=== PATIENT | female | born 1995 ===

== ENCOUNTER 2017-07-24 12:35 | Observation (INO) | payer MEDICAID, OTHER ==
[2017-07-24 13:11] VITALS: BMI 29.7
[2017-07-24] MEDS ORDERED: Lactated Ringer's 1,000 ML IV SCH ×2 (13:15→14:30)
[2017-07-24 13:38] LABS: BASO % 0.2 % (0.0-2.0); EOS # 0.1 K/uL (0.0-0.7); EOS % 1.1 % (0.0-4.0); HEMOGLOBIN 10.8 g/dL (12.0-16.0); LYMPH # 1.4 K/uL (1.0-4.3); LYMPH % 10.5 % (20.0-40.0); MEAN CELL VOLUME 76.1 fl (81.0-99.0); MEAN CORPUSCULAR HEMOGLOBIN 24.7 pg (27.0-31.0); MEAN CORPUSCULAR HGB CONC 32.4 g/dL (33.0-37.0); MEAN PLATELET VOLUME 9.1 fl (7.2-11.7); MONO # 0.7 K/uL (0.0-0.8); MONO % 4.8 % (0.0-10.0); NEUT # 11.3 K/uL (1.8-7.0); NEUT % 83.4 % (50.0-75.0); RBC 4.39 Mil/uL (3.80-5.20); RED CELL DISTRIBUTION WIDTH 16.4 % (11.5-14.5); WHITE BLOOD COUNT 13.5 K/uL (4.8-10.8)
[2017-07-24 14:02] LABS: AMYLASE 110 U/L (30-110); CALCIUM 9.4 mg/dL (8.4-10.2); GFR AFRICAN-AMERICAN > 60; GFR NON-AFRICAN AMERICAN > 60; LIPASE 95 U/L (23-300)
[2017-07-24 14:05] LABS: ALB/GLOB RATIO 0.9 (1.0-2.1); ALT/SGPT 9 U/L (9-52); AST/SGOT 40 U/L (14-36); BLOOD UREA NITROGEN 8 mg/dl (7-17)
[2017-07-24 14:16] LABS: SQUAMOUS EPITHIAL 6 /hpf (0-5); URINE BACTERIA OCC (<OCC); URINE BILIRUBIN NEGATIVE (NEGATIVE); URINE BLOOD SMALL (NEGATIVE); URINE CLARITY CLOUDY (Clear); URINE COLOR YELLOW (YELLOW); URINE GLUCOSE (UA) NEG (Normal); URINE LEUKOCYTE ESTERASE NEG Leu/uL (Negative); URINE PROTEIN 30 mg/dL (NEGATIVE); URINE UROBILINOGEN 0.2-1.0 mg/dL (0.2-1.0)
--- NOTE | 2017-07-24 15:58 | US ---
HISTORY: diffuse abdominal pain and left flank pain COMPARISON: None. TECHNIQUE: Sonographic evaluation of the abdomen. FINDINGS: LIVER: Measures 13.0 cm. Normal echogenicity of the liver parenchyma. No mass. No intrahepatic bile duct dilatation. GALLBLADDER: Unremarkable. No gallstones. COMMON BILE DUCT: Measures 3 mm. No stones. No dilatation. PANCREAS: Suboptimally visualized RIGHT KIDNEY: Measures 12.1cm. Normal echogenicity. No calculus, mass, or hydronephrosis. LEFT KIDNEY: Measures 12.6cm. Normal echogenicity. No calculus, mass, or hydronephrosis. SPLEEN: Normal in size and contour. No mass. AORTA: No aneurysmal dilatation. IVC: Unremarkable. OTHER FINDINGS: None. IMPRESSION: Unremarkable examination.
[2017-07-24] MEDS: Lactated Ringer's 1,000 ML IV SCH (16:00)
[2017-07-24] MEDS ORDERED: cefTRIAXone 2 GM in Sodium Chloride 0.9% 100 ML IVPB SCH (18:22)
[2017-07-25] MEDS: Lactated Ringer's 1,000 ML IV SCH (06:46)
[2017-07-25 07:07] LABS: HEMOGLOBIN 9.3 g/dL (12.0-16.0); MEAN CELL VOLUME 76.6 fl (81.0-99.0); MEAN CORPUSCULAR HEMOGLOBIN 24.2 pg (27.0-31.0); MEAN CORPUSCULAR HGB CONC 31.6 g/dL (33.0-37.0); RBC 3.85 Mil/uL (3.80-5.20); RED CELL DISTRIBUTION WIDTH 16.6 % (11.5-14.5); WHITE BLOOD COUNT 11.6 K/uL (4.8-10.8)
[2017-07-25] MEDS ORDERED: cefTRIAXone 2 GM in Sodium Chloride 0.9% 100 ML IVPB SCH (09:00)
== END 2017-07-25 09:55 | disposition home or self-care (01) ==
LOC: H.EROB2 12:35 → H.EDERROR 12:35 → H.L&D 17:43
PROVIDERS: ADMIT Obstetrics & Gynecology; ATTEND Obstetrics & Gynecology
DX: O26.892 Other specified pregnancy related conditions, second trimester (principal); Z3A.21 21 weeks gestation of pregnancy; R10.9 Unspecified abdominal pain
CPT/HCPCS: 76700; 80053; 81003; 82150; 83690; 85025; 85027; 87086; 96361; 96374; 96375; 96376; 99285; G0378; J0696; J2270; J2405; J7120

== ENCOUNTER 2017-10-23 18:08 | Inpatient (IN) | payer OTHER ==
[2017-10-23 18:32] VITALS: BMI 29.9
[2017-10-23] MEDS ORDERED: AMPicillin 2 GM in Sodium Chloride 0.9% 100 ML IVPB STA (18:46)
[2017-10-23] MEDS ORDERED: Betamethasone Soluspan 30 mg/5mL Inj Susp IM STA (19:00)
[2017-10-23 19:20] LABS: HEMOGLOBIN 9.3 g/dL (12.0-16.0); MEAN CELL VOLUME 71.1 fl (81.0-99.0); MEAN CORPUSCULAR HEMOGLOBIN 21.9 pg (27.0-31.0); MEAN CORPUSCULAR HGB CONC 30.9 g/dL (33.0-37.0); RBC 4.22 Mil/uL (3.80-5.20); RED CELL DISTRIBUTION WIDTH 18.4 % (11.5-14.5); WHITE BLOOD COUNT 13.6 K/uL (4.8-10.8)
--- NOTE | 2017-10-23 22:01 | OBADHP ---
Datetime: 10/23/2017 21:48 IP Chief Complaint Other: olygohydramnios/prev C/S/ Breech presentation IP Adm Impression Other: oligo/prev c/S/ breech IP Admit Plan Other: IV steroids and antibiotids and for delivery Admit Comment, IP Provider: pt seen at [facility] dept today and had sono/BPP showing oligo and breech pres entation Dr Murillo had recomended to admit and administer steriods and then delivery Discussed wit h pt who understands and agreed. Extremities - PN: Normal Abdomen - PN: Abnormal Back - PN: Normal Breast - PN: Normal Lungs - PN: Normal Heart - PN: Normal Thyroid - PN: Normal Neurologic - PN: Normal HEENT - PN: Normal General - PN: Normal Presentation-Admit: Breech FHR - Baseline A Provider: 140 Membranes, Provider: Intact Comments, ACOG Physical Exam: Abd gravid fundus at 31 cm from sp, old scar; ext no calf tenderness Gestation - Est Wks by US: 34+ wks IP Hx Assessment: The History has been Reviewed and is Current Vital Signs Provider: Reviewed IP Chief Complaint: Other NICHD Variability Prov Fetus A: Minimal - Undetectable to <5bpm NICHD Accel Fetus A IP Provider: 10X10 NICHD Decel Fetus A IP Provider: None Dilatation, Provider: closed Effacement, Provider: none Genitourinary Exam: Normal DTRs - PN: Normal EGA AdmitDate IP: 34.2 IP Adm Impression: , intrauterine IP Admit Plan: Admit to unit
[2017-10-24] MEDS: AMPicillin 1 GM in Sodium Chloride 0.9% 100 ML IVPB SCH ×6 (04:00→20:00)
[2017-10-24] MEDS: Lactated Ringer's 1,000 ML IV SCH ×2 (06:42→20:00)
[2017-10-24] MEDS ORDERED: Betamethasone Soluspan 30 mg/5mL Inj Susp IM ONE (07:30)
[2017-10-24] MEDS ORDERED: Oxytocin 30 units/LR 500ML 30 U/500 ML BAG IV ONE (08:32)
[2017-10-24] MEDS ORDERED: Lactated Ringer's 2,000 ML IV SCH (11:30)
[2017-10-25] MEDS: AMPicillin 1 GM in Sodium Chloride 0.9% 100 ML IVPB SCH ×3 (00:04→09:06)
[2017-10-25] MEDS: Lactated Ringer's 1,000 ML IV SCH ×2 (08:10→20:28)
[2017-10-25] MEDS ORDERED: ePHEDrine 50 mg/ml Inj ONE ×2 (09:33→10:10)
[2017-10-25] MEDS ORDERED: Morphine 1 mg/ml preservative-free Inj(Duramorph) ONE (09:35)
[2017-10-25] MEDS ORDERED: Lactated Ringer's 1,000 ML IV SCH (11:30)
--- NOTE | 2017-10-25 12:05 | OBDS ---
MATERNAL INFORMATION Delivery Anesthesia: Spinal Estimated Blood Loss (ml): 800 Other Maternal Complications: oligohydramnios Pre-trm Provider Comments: see Dictated surgerons note LABOR SUMMARY EDC: 12/02/2017 00:00 No. Babies in Womb: 1 Attempted: No Labor Anesthesia: Epidural LABOR INFORMATION Reason for Induction: Not Applicable Oxytocin: N/A Group B Beta Strep: Not Done Antibiotics # of Doses: 9 Antibiotics Time of Last Dose: 0906 Steroids Given: Full Course Reason Steroids Not Administered: Indication MEMBRANES Membranes Rupture Method: Artificial Rupture of Membranes: 10/25/2017 10:10 Length of Rupture (hrs): 0.05 Amniotic Fluid Color: Clear Amniotic Fluid Amount: Scant Amniotic Fluid Odor: Normal STAGES OF LABOR Stage 3 hrs: 0 Stage 3 min: 1 VAGINAL DELIVERY Episiotomy: None Laceration Extension: N/A Laceration Type: None Laceration Repair: Not Applicable Sponge Count Correct: Yes Sharps Count Correct: Yes Count Comment: count correct x3 CSECTION DELIVERY Primary Indication: > 2 Previous CSections/ Other Primary Indication: NOEMI-4.5,breech presentation Secondary Indication: Breech Presentation Other Secondary Indication: prev C/S CSection Urgency: Elective CSection Incidence: Repeat Labor: No Labor Elective: Elective Uterine Closure: Double-layer closure BABY A INFORMATION Delivery Date/Time: 10/25/2017 10:13 Method of Delivery: Born in Route : No : N/A Forceps: N/A Vacuum Extraction: N/A Shoulder Dystocia : No SHOULDER DYSTOCIA BABY A Infant Delivery Date/Time: 10/25/2017 10:13 PRESENTATION/POSITION BABY A Presentation: Breech Breech Presentation: Complete PLACENTA INFORMATION BABY A Placenta Delivery Time : 10/25/2017 10:14 Placenta Method of Delivery: Expressed Placenta Status: Delivered SCORES BABY A Heart Rate 1 min: Slow, Below 100 bpm Resp Effort 1 min: Slow, Irregular Reflex Irritability 1 min: Cough or Sneeze or Pulls Away Muscle Tone 1 min: Some Flexion of Extremities Color 1 min: Blue/Pale Resuscitation Effort 1 min: PPV/NCPAP SCORE 1 MIN: 5 Heart Rate 5 min: >100 bpm Resp Effort 5 min: Good Cry Reflex Irritability 5 min: Cough or Sneeze or Pulls Away Muscle Tone 5 min: Active Motion Color 5 min: Body [place], Extremities Blue SCORE 5 MIN: 9 INFORMATION BABY A Gestational Age at Delivery: 34.4 Gestational Status: Outcome : Liveborn Condition : Stable Infant Sex: Female IDENTIFICATION/MEDS BABY A ID Band Number: [id number] ID Band Location: Left Leg; Left Arm Vitamin K Given : Not Given Erythromycin Given: Not Given WEIGHT/LENGTH BABY A Infant Birthweight (gms): 2345 Weight (lb): 5 Infant Weight (oz): 3 CORD INFORMATION BABY A No. Cord Vessels: 3 Nuchal Cord : N/A Cord Blood Taken: Yes ASSESSMENT BABY A Complications: Meconium Physical Findings at Delivery: Within Normal Limits Respirations: Appears Normal Topographic Computator/ALS Called : Yes Care By: /Gregory Hernandez Transferred To: [facility]
[2017-10-25] MEDS ORDERED: DiphenhydrAMINE 50 mg/ml Inj IVP PRN (13:57)
[2017-10-25] MEDS: cefOXitin Sodium 1 GM in Sodium Chloride 0.9% 100 ML IVPB SCH (17:31)
[2017-10-26] MEDS: cefOXitin Sodium 1 GM in Sodium Chloride 0.9% 100 ML IVPB SCH ×2 (01:09→09:00)
[2017-10-26] MEDS: Lactated Ringer's 1,000 ML IV SCH (05:20)
[2017-10-26 07:28] LABS: HEMOGLOBIN 7.9 g/dL (12.0-16.0); MEAN CELL VOLUME 71.6 fl (81.0-99.0); MEAN CORPUSCULAR HEMOGLOBIN 22.2 pg (27.0-31.0); RBC 3.55 Mil/uL (3.80-5.20); RED CELL DISTRIBUTION WIDTH 18.3 % (11.5-14.5); WHITE BLOOD COUNT 15.3 K/uL (4.8-10.8)
[2017-10-26] MEDS: Multivitamin With Minerals Tab PO SCH (09:02)
--- NOTE | 2017-10-26 14:34 | OBPPN ---
Datetime: 10/26/2017 14:29 PP Pain Prov: Within normal limits PP Pain Prov comment: no SOB, chest or leg pains PP Nausea Prov: Denies PP BM Prov: No PP Breasts Prov: Normal PP Lungs Prov: Normal PP Abdomen/Uterus Prov: Abnormal PP Lochia Prov: Normal PP Vulva/Perineum Prov: Normal PP CVA Tenderness Prov: Normal PP Extremities Prov: Normal PP C/S Incision Prov: Normal PP Progress Prov: Normal PP Comments Phys Exam Prov: breast not engorged NT; Abd soft not distended fundus firm below the umb , dressing intact no sign of active bleeding Ext no calf tenderness PP Impression Prov: Normal progression PP Plan Prov: Continue present management PP Progress Note Prov: OOB and ambulation, continue PO care IP PP Procedures: None
[2017-10-26] MEDS: Oxycodone/Acetaminophen 5/325 mg Tab PO PRN ×2 (16:37→21:29)
[2017-10-27] MEDS: Oxycodone/Acetaminophen 5/325 mg Tab PO PRN ×4 (01:52→20:38)
--- NOTE | 2017-10-27 07:18 | OBPPN ---
Datetime: 10/27/2017 07:13 PP Pain Prov: Within normal limits PP Pain Prov comment: No sob, chest or leg pain. PP Nausea Prov: Denies PP Flatus Prov: Yes PP BM Prov: No PP Breasts Prov: Normal PP Lungs Prov: Normal PP Abdomen/Uterus Prov: Abnormal PP Vulva/Perineum Prov: Normal PP CVA Tenderness Prov: Normal PP Extremities Prov: Normal PP C/S Incision Prov: Normal PP Progress Prov: Normal PP Comments Phys Exam Prov: breast NT, NE; Abd soft not distended fundus firm below the umb, incisio n clean and dry no suppt or discharge Ext no leg edema or calf tenderness PP Impression Prov: Normal progression PP Plan Prov: Continue present management PP Progress Note Prov: Dulcolax suppt this am OOB and ambulation Increase po fluids IP PP Procedures: None Vital Signs Provider PP: Reviewed
[2017-10-27] MEDS: Multivitamin With Minerals Tab PO SCH (08:02)
--- NOTE | 2017-10-27 08:02 | OP ---
PROCEDURE DATE: 10/25/2017 PREOPERATIVE DIAGNOSES: 1. at 34 plus weeks' gestation. 2. Severe oligohydramnios. 3. Previous section. 4. Breech presentation. POSTOPERATIVE DIAGNOSES: 1. at 34 plus weeks gestation. 2. Pelvic adhesions. SURGEON: Augusto Jones MD ASSISTANTS: Dr. Hooks and Dr. Parra. Dr Hooks present during entire duration of case, restaurant assistant manager needed to help in delivery of baby, opening up abdomen and closure of abdomen ANESTHESIA USED: Spinal. ANESTHESIOLOGIST: Alirio Chapman MD ESTIMATED BLOOD LOSS: 300 mL. DRAINS USED: None. REPLACEMENTS USED: None. FINDINGS: 1. Delivered living baby girl. Baby appears adequate for gestational age. Baby cries spontaneously. Delivered in a double footling breech presentation using a Mariceu- Smeltlly-Weit procedure. Blankmaker in attendance. 2. Amniotic fluid clear. 3. Placenta complete and intact. 4. Both tubes and ovaries appeared grossly within normal limits to inspection bilaterally. 5. Adhesions of the omentum to the anterior abdominal wall. DESCRIPTION OF PROCEDURE: The patient was taken to the operating room and placed on the operating table in a supine position. Following induction of spinal anesthesia, the patient was then replaced in a supine position. A Cruz catheter was then inserted into the bladder and was draining clear fluid. At this time, we then proceeded to drape and prep the abdomen after Venodyne boots were applied to both legs. Anesthesia tested and found to be well secured. A Pfannenstiel incision was then made along the edges of the previous incision. The incision was then extended down to the subcutaneous tissue using sharp dissection. At this time, hemostasis was obtained by means of electrocoagulation, and the incision was then extended down to the fascia. The fascia was then entered at the midline. The incision was then extended laterally in each direction. Upon entering the fascia, rectus muscle was then identified, was then slid a the midline to exposing the peritoneum. Peritoneal layer was then picked up using two Lilly clamps, retracted superiorly and then entered using sharp dissection. Incision in the peritoneum was then extended superiorly and inferiorly under direct visualization. At this time, most part of adhesions noted to be present between the omentum and the anterior abdominal wall and the lower transverse segment of the uterus. Some of these adhesions were then carefully lysed in order to have adequate exposure to the area. Following this, the bladder flap was then created using blunt and sharp dissection. An incision was then made using sharp dissection in the lower transverse segment of the uterus. Prior to this, the bladder had been identified, retracted inferiorly using the Ventura retractor. Upon entering the uterine cavity, clear fluid noted to be present. The baby appears to be in a double footling position. The baby was aspirated using bulb suction. It cries spontaneously. The umbilicus was then doubly clamped, cut, and the baby handed out to the animal control licensing worker who was standing by. Samples of the cord blood were then obtained, and the placenta was then delivered complete and intact. The uterus was then exteriorized to provide better visualization. The uterine cavity was then thoroughly cleaned using moist lap pads, and the uterus massaged and contracted well. At this time, the uterine incision was then secured using multiple T clamps and after massaging the uterus, the uterine incision was then approximated using 0 Vicryl suture in a continuous interlocking manner. A second layer was also applied using 0 Vicryl suture in a continuous manner. Hemostasis checked and found to be well secured. Several interrupted 2-0 chromic sutures were then used to approximate the bladder flap. All operative areas checked, hemostatically secured. Both tubes and ovaries appeared grossly within normal limits to inspection bilaterally. At this time, the pelvic cavity was then irrigated thoroughly using saline solution. All operative areas checked, hemostatically secured. Some of the adhesions through the omentum to the anterior abdominal wall were then doubly clamped, cut and ligated using 0 Vicryl sutures. These were done in order to prevent future entrapment of the bowel. Following lysis of adhesions, all operative areas checked, hemostatically secured. Both tubes and ovaries appeared grossly within normal limits to inspection bilaterally. The peritoneum was then approximated using 0 Vicryl suture in a continuous manner. Rectus muscle was then approximated in the midline also using 0 Vicryl suture in a continuous manner. At this time, the fascia was then identified, was then approximated using 1 Vicryl suture in a continuous manner. Fascia was then checked and found to be free of defect. Subcutaneous tissue was then irrigated using saline solution and approximated using several interrupted 2-0 plain sutures. The skin was then approximated using a 3-0 Prolene in a subcuticular fashion. Steri-Strips were then applied to the incision. At this time, all operative areas checked, hemostatically secured. Clear fluid noted to be present in the Cruz bag. Sponge, instrument and needle count correct x3. The patient tolerated the procedure well. There were no complications. She was transferred to the recovery room in satisfactory condition. Augusto Jones MD MTDD
[2017-10-28] MEDS: Oxycodone/Acetaminophen 5/325 mg Tab PO PRN (00:24)
--- NOTE | 2017-10-28 07:16 | OBPPN ---
Datetime: 10/28/2017 07:11 PP Pain Prov: Abnormal PP Pain Prov comment: no SOB, chest or leg pains PP Nausea Prov: Denies PP BM Prov: Yes PP Nausea Prov comment: voiding well PP Breasts Prov: Normal PP Lungs Prov: Normal PP Abdomen/Uterus Prov: Abnormal PP Lochia Prov: Normal PP Vulva/Perineum Prov: Normal PP CVA Tenderness Prov: Normal PP Extremities Prov: Normal PP C/S Incision Prov: Normal PP Progress Prov: Normal PP Comments Phys Exam Prov: breast NT not engorged Abd soft ND soft Fundus firm below the umb Incisi on clean and dry no active bleeding or suppt Ext no calf tenderness PP Impression Prov: Normal progression PP Plan Prov: Continue present management PP Progress Note Prov: Continue pain meds and po iron OOB and ambulation Increase po fluids IP PP Procedures: None Vital Signs Provider PP: Reviewed
[2017-10-28] MEDS: Multivitamin With Minerals Tab PO SCH (08:05)
[2017-10-29] MEDS: Multivitamin With Minerals Tab PO SCH (08:34)
--- NOTE | 2017-10-29 08:37 | OBPPN ---
Datetime: 10/29/2017 08:34 PP Pain Prov: Within normal limits PP Nausea Prov: Denies PP Flatus Prov: Yes PP Breasts Prov: Not Done PP Heart Prov: Normal PP Lungs Prov: Normal PP Abdomen/Uterus Prov: Normal PP Lochia Prov: Not Done PP Vulva/Perineum Prov: Not Done PP CVA Tenderness Prov: Normal PP Extremities Prov: Normal PP Impression Prov: Normal progression PP Plan Prov: Discharge PP Progress Note Prov: doing well pt desires to go home pt cleared for discharge POC discussed with PMD Vital Signs Provider PP: Reviewed
--- NOTE | 2017-10-29 08:39 | OBDCSUM ---
Datetime: 10/29/2017 08:37 Discharged to, Provider: Home Follow up at, Provider: [facility] Disch Instr Activity: Normal activity Disch Instr Diet: Regular Discharge Instructions, Provider: Routine instructions given Discharge Diagnosis, Provider: Term Delivered Follow up in weeks, Provider: 1 week Disch Referrals: None Contraception discussed, Prov: Yes Contraception after Delivery: Undecided Datetime: 07/25/2017 09:28 Contraception discussed, Prov: Yes
[2017-10-29 17:13] VITALS: BP 114/59; PULSE 75; RESP 19; TEMP 98.5; O2SAT 100
== END 2017-10-29 12:00 | disposition home or self-care (01) | DRG 371 ==
LOC: H.L&D 18:33 → H.OB/GYN 10-25 16:07
PROVIDERS: ADMIT Specialist; ATTEND Specialist
PROC: 4A1HXCZ Monitoring of Products of Conception, Cardiac Rate, External Approach (ICD-10-PCS; 2017-10-23)
PROC: 10D00Z1 Extraction of Products of Conception, Low, Open Approach (ICD-10-PCS; principal; 2017-10-25)
DX: O41.03X0 Oligohydramnios, third trimester, not applicable or unspecified (principal); O34.211 Maternal care for low transverse scar from previous cesarean delivery; N85.8 Other specified noninflammatory disorders of uterus; O77.0 Labor and delivery complicated by meconium in amniotic fluid; O32.8XX0 Maternal care for other malpresentation of fetus, not applicable or unspecified; O99.89 Other specified diseases and conditions complicating pregnancy, childbirth and the puerperium; K66.0 Peritoneal adhesions (postprocedural) (postinfection); N73.6 Female pelvic peritoneal adhesions (postinfective); Z37.0 Single live birth; Z3A.34 34 weeks gestation of pregnancy

== ENCOUNTER 2017-11-06 15:28 | Emergency (ER) | payer OTHER ==
[2017-11-06 15:28] VITALS: BMI 29.9
[2017-11-06 15:39] VITALS: TEMP 98.9; O2SAT 100
[2017-11-06] MEDS ORDERED: Sodium Chloride 0.9% 1,000 ML IV STA (15:43)
--- NOTE | 2017-11-06 15:52 | ED PDOC ---
Syncope/Near Syncope/Dizziness Time Seen by Provider: 11/06/17 15:42 Chief Complaint (Nursing): Dizziness/Lightheaded History Per: Patient Onset/Duration Of Symptoms: Days (1) Current Symptoms Are (Timing): Still Present Possible Causative Factor(s): Lightheaded W/Standing Fall Associated With With Symptoms: No Severity: Mild Additional Complaint(s): Lightheadedness since this AM. S/p 10/25. Denies heavy vaginal bleeding. Denies chest pain or SOB. No focal weakness. Past Medical History Vital Signs: Last Vital Signs Temp 98.9 F 11/06/17 15:36 Pulse 88 11/06/17 15:36 Resp 18 11/06/17 15:36 BP 116/74 11/06/17 15:36 Pulse Ox 100 11/06/17 15:36 - Medical History PMH: No Chronic Diseases Denies: Depression, Diabetes, HTN - Family History Family History: States: Unknown Family Hx - Immunization History Hx Tetanus Toxoid Vaccination: No Hx Influenza Vaccination: No Hx Pneumococcal Vaccination: No - Home Medications Home Medications: Ambulatory Orders Medication Instructions Recorded Vit Calc,Iron,Folic 1 each PO DAILY 10/24/17 [ Vitamins] Ibuprofen [Motrin Tab] 600 mg PO Q6H PRN tab 10/29/17 oxyCODONE/Acetaminophen [Percocet 1 tab PO Q4 PRN #25 tab 10/29/17 5/325 mg Tab] - Allergies Allergies/Adverse Reactions: Allergies Allergy/AdvReac Type Severity Reaction Status Date / Time No Known Allergies Allergy Verified 11/06/17 15:35 Review of Systems ROS Statement: Except As Marked, All Systems Reviewed And Found Negative Constitutional: Positive for: Weakness Physical Exam - Reviewed Nursing Documentation Reviewed: Yes Vital Signs Reviewed: Yes - Physical Exam Appears: Positive for: Non-toxic, No Acute Distress Head Exam: Positive for: ATRAUMATIC, NORMAL INSPECTION, NORMOCEPHALIC Skin: Positive for: Warm, Pallor Eye Exam: Positive for: EOMI, Normal appearance, PERRL ENT: Positive for: Normal ENT Inspection Neck: Positive for: Normal, Painless ROM Cardiovascular/Chest: Positive for: Regular Rate, Rhythm Respiratory: Positive for: CNT, Normal Breath Sounds Gastrointestinal/Abdominal: Positive for: Normal Exam, Soft Back: Positive for: Normal Inspection Extremity: Positive for: Normal ROM Neurologic/Psych: Positive for: Alert, Oriented - Laboratory Results Result Diagrams: 11/06/17 16:10 11/06/17 16:10 - ECG O2 Sat by Pulse Oximetry: 100 Medical Decision Making Medical Decision Making: Discussed with Dr. Jones. aware of Hgb. Will follow in office. Disposition - Clinical Impression Clinical Impression: Dizziness - Patient ED Disposition Is Patient to be Admitted: No Counseled Patient/Family Regarding: Studies Performed, Diagnosis, Need For Followup, Rx Given - Disposition Referrals: Augusto Jones MD [Family Provider] - Disposition: Routine/Home Disposition Time: 16:55 Condition: FAIR Instructions: Dizziness, Nonvertigo, (DC) Forms: [employer] (Turkish)
[2017-11-06 16:17] LABS: BASO # 0.1 K/uL (0.0-0.2); BASO % 0.6 % (0.0-2.0); EOS # 0.6 K/uL (0.0-0.7); EOS % 5.5 % (0.0-4.0); HEMOGLOBIN 9.8 g/dL (12.0-16.0); LYMPH # 2.5 K/uL (1.0-4.3); LYMPH % 22.4 % (20.0-40.0); MEAN CELL VOLUME 71.5 fl (81.0-99.0); MEAN CORPUSCULAR HEMOGLOBIN 22.6 pg (27.0-31.0); MEAN CORPUSCULAR HGB CONC 31.6 g/dL (33.0-37.0); MEAN PLATELET VOLUME 8.2 fl (7.2-11.7); MONO # 0.8 K/uL (0.0-0.8); MONO % 6.8 % (0.0-10.0); NEUT # 7.3 K/uL (1.8-7.0); NEUT % 64.7 % (50.0-75.0); NRBC % 0.1 % (0.0-0.0); RBC 4.32 Mil/uL (3.80-5.20); RED CELL DISTRIBUTION WIDTH 18.8 % (11.5-14.5); WHITE BLOOD COUNT 11.3 K/uL (4.8-10.8)
[2017-11-06 16:30] LABS: ALBUMIN 4.1 g/dL (3.5-5.0); ALT/SGPT 24 U/L (9-52); AST/SGOT 32 U/L (14-36); BLOOD UREA NITROGEN 12 mg/dl (7-17); CALCIUM 9.4 mg/dL (8.4-10.2); GFR AFRICAN-AMERICAN > 60; GFR NON-AFRICAN AMERICAN > 60
[2017-11-06 17:13] VITALS: BP 125/80; PULSE 75; RESP 16
== END 2017-11-06 17:13 | disposition home or self-care (01) ==
LOC: H.ER 15:28
DX: R42 Dizziness and giddiness (principal)
CPT/HCPCS: 80053; 85025; 99283; J7030